=== PATIENT | male | born 1955 | race Hispanic/Latino ===

== ENCOUNTER 2016-05-17 17:22 | Emergency (ER) | payer OTHER, MEDICARE ==
[~2016-05-17] VITALS: Ht 165.1 cm; Wt 76.2 kg
[~2016-05-17 17:22] MED LIST: ALPRAZOLAM0.5 MG PO; ECOTRIN81 MG PO; GLUCOPHAGE1000 M1 PO; JANUVIA 50MG50 MG PO; LIPITOR40 M1 PO; MOBIC 15MG15 MG PO; NAPROXEN500 MG PO; OMEPRAZOLE40 MG PO; PAXIL30 MG PO; PREDNISONE10 M2 PO; TRAMADOL50 MG PO; TRAZODONE100 MG PO; WELLBUTRIN75 MG PO; ZYPREXA20 MG PO
[2016-05-17 17:48] LABS: ABSOLUTE BASOPHIL COUNT 0 /CUMM (0.0-0.2); ABSOLUTE EOSINOPHIL COUNT 0 /CUMM (0.0-0.7); ABSOLUTE MONOCYTE COUNT 0.4 /CUMM (0.10-0.60); BASOPHIL % 0.2 % (0.0-2.0); EOSINOPHIL % 0.1 % (0-5); HEMATOCRIT 38.6 % (42-52); MEAN CORPUSCULAR HGB 26.6 PG (27.0-31.0); MEAN CORPUSCULAR HGB CONC 33.4 G/DL (33.0-37.0); MEAN CORPUSCULAR VOLUME 79.7 FL (80.0-94.0); MEAN PLATELET VOLUME 6.9 FL (7.4-10.4); PLATELET COUNT 326 /CUMM (130-400); RBC DISTRIBUTION WIDTH 13.8 % (11.5-14.5); RED BLOOD CELL CT 4.84 /CUMM (4.70-6.10); WHITE BLOOD CELL COUNT 10.3 /CUMM (4.8-10.8)
[2016-05-17 18:04] LABS: GRANULOCYTE % 86.6 % (42.2-75.2)
--- NOTE | 2016-05-17 18:08 | ED DYSPNEA/ASTHMA COMPLAINT ---
History of Present Illness General Chief Complaint: Dyspnea (COPD, CHF, Other) Stated Complaint: PT IS SHORTNESS OF BREATH Source: patient Exam Limitations: no limitations Vital Signs & Intake/Output Vital Signs & Intake/Output Vital Signs Date Time Temp Pulse Resp B/P Pulse O2 O2 Flow FiO2 Ox Delivery Rate 05/18 0010 98.3 73 18 128/78 98 Nasal Cannula 05/17 2247 99 05/17 2240 97.7 70 18 130/68 96 Room Air 05/17 1937 97.3 72 18 111/64 99 Room Air 05/17 1753 96 05/17 1727 96.6 89 20 94/66 97 Room Air ED Intake and Output 05/18 0000 05/17 1200 Intake Total 1000 Output Total Balance 1000 Intake, IV 1000 Patient 168 lb Weight Allergies Coded Allergies: phenelzine (BRADYCARDIA 05/17/16) Triage Note: TRIAGE: PT TO ER C/C SOB X 2 WKS. DENIES ANY RESPIRATORY OR CHEST CONGESTION, DENIES COUGHING. STATES SOB IS MOSTLY WITH EXERTION BUT IS FEELING SOB AT TRIAGE. ALSO SLIGHT NON PRODUCTIVE COUGH NOTED AT TRIAGE. DENIES ANY PAIN. Triage Nurses Notes Reviewed? yes Onset: Gradual Duration: constant Timing: recent history Severity: moderate HPI: Patient is a 60-year-old male with past medical history type 2 diabetes, pacemaker placement, bipolar disorder and arthritis who is never day smoker presents emergency room with a two-week history of shortness of breath and dyspnea on exertion Positive for generalized weakness and night sweats. Denies any chest pain arm pain jaw pain nausea vomiting leg swelling, hemoptysis fever cough or loss of weight (JANIA ALBERTS,SHREE) Reconcile Medications Albuterol Sulfate (Proair Hfa) 90 MCG HFA.AER.AD 2-4 PUF INH Q4-6 PRN PRN shortness of breath Aspirin (Ecotrin) 81 MG ECT 1 TAB PO DAILY HEART HEALTH (Reported) Atorvastatin Calcium (Lipitor) 40 MG TAB 1 TAB PO DAILY CHOLESTEROL (Reported ) Duloxetine HCl (Cymbalta) 60 MG CAPSULE.DR 60 MG PO DAILY DEPRESSION ( Reported) Duloxetine Hydrochloride (Cymbalta) 30 MG CAPSULE.DR 30 MG PO DAILY DEPRESSION (Reported) Lisinopril 5 MG TABLET 5 MG PO DAILY HIGH BLOOD PRESSURE (Reported) METFORMIN HCL (Metformin) 1,000 MG TAB 1 TAB PO BID DM (Reported) Naproxen 500 MG TAB 1 TAB PO D PAIN (Reported) Olanzapine (Zyprexa) 20 MG TAB 1 TAB PO QHS MENTAL HEALTH (Reported) Omeprazole 40 MG ECC 1 CAP PO DAILY ACID (Reported) Paroxetine Hydrochloride (Paxil) 30 MG TAB 2 TAB PO D MENTAL HEALTH (Reported ) TRAMADOL HCL (Tramadol) 50 MG TAB 1 TAB PO BID PAIN (Reported) TRAZODONE HCL (Trazodone HCl) 100 MG TABLET 1 TAB PO QPM SLEEP (Reported) (JENNY ISABEL,ADAM) Past History Travel History Traveled to [place] past 21 day No Medical History Any Pertinent Medical History? 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 No (SHREE BIRD) Review of Systems Review of Systems Constitutional: Reports: see HPI. Denies: fever. EENTM: Reports: no symptoms. Respiratory: Reports: see HPI, short of breath. Denies: cough. Cardiovascular: Reports: see HPI. Denies: chest pain, edema, peripheral edema. GI: Reports: no symptoms. Genitourinary: Reports: no symptoms. Musculoskeletal: Reports: no symptoms. Skin: Reports: no symptoms. Neurological/Psychological: Reports: no symptoms. Hematologic/Endocrine: Reports: no symptoms. Immunologic/Allergic: Reports: no symptoms. All Other Systems: Reviewed and Negative (SHREE BIRD) Physical Exam Physical Exam General Appearance: no apparent distress Head: atraumatic Eyes: Bilateral: normal appearance. Ears, Nose, Throat: normal pharynx, normal ENT inspection Neck: normal inspection, supple Respiratory: chest non-tender, no respiratory distress, quiet respiration, decreased breath sounds Cardiovascular: regular rate/rhythm Gastrointestinal: normal bowel sounds, soft, non-tender, no organomegaly Extremities: normal inspection, normal capillary refill, normal range of motion Neurologic/Psych: no motor/sensory deficits Skin: intact, normal color, warm/dry Core Measures ACS in differential dx? Yes Severe Sepsis Present: No Septic Shock Present: No (SHREE BIRD) Progress Differential Diagnosis: asthma, AMI, bronchitis, costochondritis, CHF, COPD, musculoskeletal pain, pericarditis, pulmonary embolism, pneumonia, pneumothorax, rib fracture, unstable angina Plan of Care: Orders Procedure Date/time Status Add-on Test (ER Only) 05/17 180 Active D-DIMER 05/17 173 Complete TROPONIN LEVEL 05/17 173 Complete COMPREHENSIVE METABOLIC PANEL 05/17 173 Complete CBC WITHOUT DIFFERENTIAL 05/17 1730 Complete EKG 05/17 172 Active Laboratory Tests 05/17/16 1738: Anion Gap 18 H, Estimated GFR 31 L, BUN/Creatinine Ratio 9.5, Glucose 103 H, Calcium 9.7, Total Bilirubin 0.4, AST 20, ALT 34, Alkaline Phosphatase 102, Troponin I < 0.01, Total Protein 7.2, Albumin 4.5, Globulin 2.7, Albumin/ Globulin Ratio 1.7, D-Dimer 405 H, CBC w Diff NO MAN DIFF REQ, RBC 4.84, MCV 79.7 L, MCH 26.6 L, RDW 13.8, MPV 6.9 L, Gran % 86.6 H, Lymphocytes % 9.6 L , Monocytes % 3.5, Eosinophils % 0.1, Basophils % 0.2, Absolute Granulocytes 9.0 H, Absolute Lymphocytes 1.0 L, Absolute Monocytes 0.4, Absolute Eosinophils 0, Absolute Basophils 0, PUBS MCHC 33.4 Patient currently is in no apparent distress patient ambulated down the hallway noted to be 96% room air with no dyspnea, Discussed and offered who is aware of patient's history of present illness and exam findings which patient at this time only has blood work noted for acute kidney injury. EKG was unremarkable chest x-ray is pending blood work especially troponin and dimer are still pending (SHREE BIRD) 6:35 PM PATIENT SIGNED OUT TO ME BY LEXUS DYKES. PENDING LABS, XRAY. U/S ORDERED TO R/O DVT. (JENNY ISABEL,ADAM) Initial ED EK BPM ATRIAL PACED PACED RHYTHM Hand-Off Endorsed To: ADAM ALVARADO MD Endorsed Time: 1831 Pending: labs, Xray (SHREE BIRD) Diagnostic Imaging: Viewed by Me: Radiology Read, Ultrasound. Discussed w/RAD: Radiology Read, Ultrasound. Hand-Off Endorsed To: CANDICE CARLISLE MD Endorsed Time: 1915 Pending: ultrasound, Xray (ADAM ALVARADO MD) Comments: Improved after interventions. Ambulates without desaturation. (CANDICE CARLISLE MD) Departure Departure Condition: Stable Referrals: RACHEL POLO MD (PCP/Family) (SHREE BIRD) Departure Time of Disposition: 41 Disposition: HOME OR SELF CARE Clinical Impression Primary Impression: DARLING (acute kidney injury) Secondary Impressions: Dyspnea on effort Additional Instructions: Stop Naprosyn and Lisinopril. Call your doctor if a substitute for Lisinopril is needed. 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 I have also reviewed all the pertinent lab results and diagnostic results. I agree with the findings and the plan of care as documented in the PA's/PACKAGING SALES REPRESENTATIVE's documentation. [] I have reviewed the ED Record and agree with the PA's/PACKAGING SALES REPRESENTATIVE's documentation. [] Additions or exceptions (if any) to the PAs/PACKAGING SALES REPRESENTATIVE's note and plan are summarized below: [] (CANDICE CARLISLE MD) Critical Care Note Critical Care Note Critical Care Time: non-applicable (SHREE BIRD)
--- NOTE | 2016-05-17 19:33 | RADIOLOGY REPORT ---
EXAMINATION: XR CHEST CLINICAL INFORMATION: Shortness of breath. COMPARISON: Portable chest x-ray 03/28/2015. TECHNIQUE: PA and lateral views of the chest were obtained. FINDINGS: The lungs are hypoinflated but otherwise clear without focal airspace consolidation. No pleural effusions or pneumothoraces are identified. Cardiomediastinal contours are within normal limits. There is a right chest wall cardiac pacemaker with leads identified in the expected region of the right atrium and right ventricle. Soft tissues are unremarkable. No acute osseous abnormality is identified. IMPRESSION: No acute pulmonary process.
--- NOTE | 2016-05-17 21:32 | ULTRASOUND REPORT ---
EXAMINATION: US TRIPLEX LOWER EXTREMITY, BILATERAL CLINICAL INFORMATION: Shortness of breath with exertion. Rule out DVT COMPARISON: None. TECHNIQUE: Color-flow triplex imaging with spectral analysis and compression Doppler were performed on the bilateral lower extremities. FINDINGS: Respiratory variation, normal compression and augmented flow are noted throughout the bilateral lower extremities. The visualized common femoral vein, superficial femoral vein, profunda femoral vein, popliteal vein and midcalf peroneal and posterior tibial venous segments show no evidence of deep venous thrombosis. There is no Juárez's cyst. There is a prominent left femoral lymph node although this is not pathologically enlarged by short axis size criteria. IMPRESSION: No evidence of deep venous thrombosis involving the bilateral lower extremities. Prominent left femoral lymph node. This is of uncertain significance as it is not pathologically enlarged by short axis size criteria.
[2016-05-17] MEDS ORDERED: CYMBALTA30 M1 PO (22:47)
[2016-05-17] MEDS ORDERED: CYMBALTA60 M1 PO (22:48)
[2016-05-17] MEDS ORDERED: LISINOPRIL5 M1 PO (22:49)
[2016-05-18 00:10] VITALS: BP 128/78
[2016-05-18] MEDS ORDERED: PROAIR HFA8.5 GM INH (00:46)
== END 2016-05-18 00:38 ==
LOC: ERH 17:22
PROVIDERS: Emergency Medicine
DX: N17.9 Acute kidney failure, unspecified (principal); R06.00 Dyspnea, unspecified; I10 Essential (primary) hypertension; R06.02 Shortness of breath; Z95.0 Presence of cardiac pacemaker
CPT/HCPCS: 1263; 93005; 93010; 93970; 96360; 96361

== ENCOUNTER 2016-08-09 18:42 | Emergency (ER) | payer OTHER, MEDICARE ==
[~2016-08-09] VITALS: Ht 165.1 cm; Wt 73.9 kg
[~2016-08-09 18:42] MED LIST changes: +CYMBALTA30 M1 PO; +CYMBALTA60 M1 PO; +LISINOPRIL5 M1 PO; +PROAIR HFA8.5 GM INH
[2016-08-09] MEDS ORDERED: TRAZODONE HCL100 M1 PO (19:39)
[2016-08-09] MEDS ORDERED: OMEPRAZOLE20 M2 PO (19:40)
[2016-08-09] MEDS ORDERED: OLANZAPINE20 M1 PO (19:40)
--- NOTE | 2016-08-09 19:40 | ED GI/GU/ABDOMINAL COMPLAINT ---
History of Present Illness General Chief Complaint: General Adult Stated Complaint: RECTAL BLEEDING Source: patient, old records Exam Limitations: no limitations Vital Signs & Intake/Output Vital Signs & Intake/Output Vital Signs Date Time Temp Pulse Resp B/P B/P Pulse O2 O2 Flow FiO2 Mean Ox Delivery Rate 08/09 2244 97.6 78 17 128/72 97 Room Air 08/09 2043 97.8 76 17 118/68 99 Room Air 08/09 1854 97.6 83 16 112/74 98 Room Air ED Intake and Output 08/10 0000 08/09 1200 Intake Total 1000 Output Total Balance 1000 Intake, IV 1000 Patient 163 lb Weight Weight Reported by Patient Measurement Method Allergies Coded Allergies: phenelzine (BRADYCARDIA 05/17/16) Reconcile Medications Anusol Hc (Anusol-Hc) 25 MG SUPP.RECT 1 SUP RC BID internal hemorrhoids Atorvastatin Calcium (Lipitor) 40 MG TABLET 1 TAB PO DAILY CHOLESTEROL ( Reported) Cholecalciferol (Vitamin D3) (Vitamin D) 1,000 UNIT TABLET 1 TAB PO DAILY SUPPLEMENT (Reported) Duloxetine HCl (Cymbalta) 60 MG CAPSULE.DR 60 MG PO DAILY DEPRESSION ( Reported) Duloxetine Hydrochloride (Cymbalta) 30 MG CAPSULE.DR 30 MG PO DAILY DEPRESSION (Reported) Lisinopril 5 MG TABLET 5 MG PO DAILY HIGH BLOOD PRESSURE (Reported) Metformin HCl (Glucophage) 1,000 MG TABLET 1 TAB PO BID DM (Reported) Olanzapine 20 MG TABLET 1 TAB PO QPM MENTAL HEALTH (Reported) Omeprazole 20 MG CAPSULE.DR 1 CAP PO DAILY GI (Reported) Trazodone HCl 100 MG TABLET 1 TAB PO QPM SLEEP (Reported) Triage Note: PT STATES HE HAS HAD RECTAL BLEEDING FOR THE PAST 4 DAYS. PT STATES THE BLOOD IS BRIGHT RED. PT STATES THIS HAS HAPPEND TO HIM IN THE PAST AND THEY TOLD HIM HE CAN'T TAKE ASA BECAUSE HE HAS INTERNAL HERMMERHOIDS. Triage Nurses Notes Reviewed? yes Onset: Last week Duration: day(s):, intermittent Timing: recent history Quality/Severity: cramping, mild Severity Numbers: 3 Location: right lower quadrant Radiation: no radiation Activities at Onset: none Prior Abdominal Problems: similar symptoms Past Sexual History: Unobtainable at this time No Modifying Factors: none Associated Symptoms: abdominal pain HPI: 1 week prior to admission patient complains of passing blood with stools up to 2 times per day. 1 day prior to admission he complains of right lower quadrant pain mild taking nonradiating constant. He denies fever chills nausea vomiting anorexia diarrhea chest pain cough shortness of breath headache dysuria rash bleeding. Past History Travel History Traveled to [place] past 21 day No Medical History Any Pertinent Medical History? 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 No Review of Systems Review of Systems Constitutional: Reports: no symptoms. EENTM: Reports: no symptoms. Respiratory: Reports: no symptoms. Cardiovascular: Reports: no symptoms. GI: Reports: see HPI, abdominal pain, bloody stool. Genitourinary: Reports: no symptoms. Musculoskeletal: Reports: no symptoms. Skin: Reports: no symptoms. Neurological/Psychological: Reports: no symptoms. Hematologic/Endocrine: Reports: no symptoms. Immunologic/Allergic: Reports: no symptoms. All Other Systems: Reviewed and Negative Physical Exam Physical Exam General Appearance: well developed/nourished, alert, awake, anxious, mild distress Head: atraumatic, normal appearance Eyes: Bilateral: normal appearance, PERRL, EOMI. Ears, Nose, Throat, Mouth: hearing grossly normal, moist mucous membrane Neck: normal inspection, supple, full range of motion, normal alignment Respiratory: normal breath sounds, chest non-tender, no respiratory distress, quiet respiration, lungs clear Cardiovascular: regular rate/rhythm, normal peripheral pulses, norml femoral pulses equa Peripheral Pulses: 4+ carotid (R), 4+ carotid (L) Gastrointestinal: normal bowel sounds, soft, non-tender, no organomegaly Rectal: normal inspection, normal rectal tone, hemmorrhoids, tenderness, no stool no blood Male Genitals: normal genitalia Back: normal inspection, normal range of motion, no vertebral tenderness Extremities: normal range of motion, no ligament instability Neurologic/Psych: no motor/sensory deficits, awake, alert, oriented x 3, normal gait, normal mood/affect, 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 No Severe Sepsis Present: No Septic Shock Present: No Progress Differential Diagnosis: gastritis, hemorrhoids, inflamm bowel dis, PUD/GERD Plan of Care: Orders Procedure Date/time Status MISTAKE 08/09 1937 Active PROTHROMBIN TIME 08/09 1937 Complete LIPASE 08/09 1937 Complete COMPREHENSIVE METABOLIC PANEL 08/09 1937 Complete CBC WITHOUT DIFFERENTIAL 08/09 1937 Complete Laboratory Tests 08/09/161953: Anion Gap 15, Estimated GFR > 60, BUN/Creatinine Ratio 21.1, Glucose 132 H, Calcium 9.3, Total Bilirubin 0.3, AST 24, ALT 43, Alkaline Phosphatase 96, Total Protein 6.7, Albumin 4.0, Globulin 2.7, Albumin/Globulin Ratio 1.5, Lipase 175, PT 11.3, INR 1.08, CBC w Diff NO MAN DIFF REQ, RBC 4.47 L, MCV 78.9 L, MCH 26.7 L, RDW 14.0, MPV 7.6, Gran % 71.8, Lymphocytes % 21.6, Monocytes % 4.0, Eosinophils % 1.8, Basophils % 0.8, Absolute Granulocytes 7.7 H, Absolute Lymphocytes 2.3, Absolute Monocytes 0.4, Absolute Eosinophils 0.2, Absolute Basophils 0.1, PUBS MCHC 33.8 Initial ED EKG: none Departure Departure Time of Disposition: 2244 Disposition: HOME OR SELF CARE Condition: Stable Clinical Impression Primary Impression: Internal bleeding hemorrhoids Referrals: MELANI ISABEL,RACHEL (PCP/Family) KEIKO WALTERS MD Call for GI follow up Departure Forms: Customer Survey General Discharge Information Prescriptions: Current Visit Scripts Anusol Hc (Anusol-Hc) 1 SUP RC BID #[id number] SUP
[2016-08-09] MEDS ORDERED: VITAMIN D1000 UNIT PO (19:42)
[2016-08-09 20:07] LABS: ABSOLUTE BASOPHIL COUNT 0.1 /CUMM (0.0-0.2); ABSOLUTE EOSINOPHIL COUNT 0.2 /CUMM (0.0-0.7); ABSOLUTE GRANULOCYTE CT 7.7 /CUMM (1.4-6.5); ABSOLUTE LYMPH COUNT 2.3 /CUMM (1.2-3.4); ABSOLUTE MONOCYTE COUNT 0.4 /CUMM (0.10-0.60); BASOPHIL % 0.8 % (0.0-2.0); EOSINOPHIL % 1.8 % (0-5); GRANULOCYTE % 71.8 % (42.2-75.2); HEMATOCRIT 35.3 % (42-52); MEAN CORPUSCULAR HGB 26.7 PG (27.0-31.0); MEAN CORPUSCULAR HGB CONC 33.8 G/DL (33.0-37.0); MEAN CORPUSCULAR VOLUME 78.9 FL (80.0-94.0); MEAN PLATELET VOLUME 7.6 FL (7.4-10.4); RED BLOOD CELL CT 4.47 /CUMM (4.70-6.10); WHITE BLOOD CELL COUNT 10.7 /CUMM (4.8-10.8)
[2016-08-09 20:14] LABS: PLATELET COUNT 270 /CUMM (130-400)
--- NOTE | 2016-08-09 21:26 | CT SCAN REPORT ---
EXAMINATION: CT ABDOMEN AND PELVIS WITH CONTRAST CLINICAL INFORMATION: Abdomen pain. Bright red blood per rectum. COMPARISON: Portions of a previous study 01/10/16 TECHNIQUE: Multidetector volumetric imaging was performed of the abdomen and pelvis before and after the IV administration of 95 mL of Optiray 320 intravenous contrast. Sagittal and coronal reformatted images were obtained on the technologist's workstation. DLP: 289 mGy-cm FINDINGS: LUNG BASES: No change in 0.5 cm noncalcified right lower lobe pulmonary nodule. Artifact related to cardiac leads. LIVER, GALLBLADDER, AND BILIARY TREE: Small low attenuating lesion in the dome of hepatic segment 8 is unchanged. No suspicious focal liver lesion. There may be some focal fatty change around the belinda hepatis. The gallbladder is collapsed. No opaque gallstone. No biliary dilation PANCREAS: Unremarkable. SPLEEN: No suspicious abnormality ADRENAL GLANDS: Within normal limits KIDNEYS AND URETERS: Bilateral nephrograms. No dilation of the urinary collecting system on either side. No opaque urinary calculus. BLADDER: No focal abnormality. The bladder is not well-distended. GASTROINTESTINAL TRACT: The distal rectum is not well distended. There is no definite localized fat stranding around the colon. There is no definite extravasation of contrast into the colonic lumen. No abnormal appendix. No significant small bowel dilation. The stomach is moderately distended. ABDOMINAL WALL: No suspicious abnormality LYMPH NODES: No enlarged abdominal or pelvic lymph nodes. There are a few nonspecific mesenteric lymph nodes. There is no free intraperitoneal fluid. VASCULAR: There is no abdominal aortic aneurysm. The portal vein enhances. PELVIC VISCERA: No suspicious abnormality in the prostate or region of seminal vesicles OSSEOUS STRUCTURES: No focal bony lesion IMPRESSION: No specific CT evidence of diverticulitis. No etiology for bright red blood per rectum. Nonspecific top normal mesenteric lymph nodes
[2016-08-09 22:11] LABS: PT 11.3 SEC (9.4-12.5)
[2016-08-09 22:44] VITALS: BP 128/72
[2016-08-09] MEDS ORDERED: ANUSOL-HC25 M1 RC (22:48)
== END 2016-08-09 23:04 ==
LOC: ERH 18:42
PROVIDERS: Emergency Medicine
DX: K64.8 Other hemorrhoids (principal)
CPT/HCPCS: 74177

== ENCOUNTER 2017-10-27 22:41 | Emergency (ER) | payer OTHER ==
[~2017-10-27 22:41] MED LIST changes: +ALPRAZOLAM1 M2 PO; +ANUSOL-HC25 M1 RC; +ASPIRIN81 M4 PO; +ATORVASTATIN CA40 M1 PO; +DEPAKOTE500 M1 PO; +DIVALPROEX SOD500 M2 PO; +GLIPIZIDE10 M2 PO; +LATUDA80 M1 PO; +MOBIC15 M1 PO; +NITROSTAT0.3 M1 SL; +OLANZAPINE15 M1 PO; +OLANZAPINE20 M1 PO; +OMEPRAZOLE20 M2 PO; +TRAZODONE HCL100 M1 PO; +TRAZODONE HCL50 M1 PO; +VITAMIN D1000 UNIT PO; +ZITHROMAX250 M2 PO
[2017-10-27 22:46] VITALS: BP 160/79
--- NOTE | 2017-10-27 22:51 | ED GENERAL ADULT ---
History of Present Illness General Chief Complaint: General Adult Stated Complaint: "MY LEGS ARE NUMB AND MY HANDS ARE NUMB" Source: patient Exam Limitations: no limitations Vital Signs & Intake/Output Vital Signs & Intake/Output Vital Signs Date Time Temp Pulse Resp B/P B/P Pulse O2 O2 Flow FiO2 Mean Ox Delivery Rate 10/27 2258 Room Air 10/27 2246 97.6 67 18 160/79 97 Room Air ED Intake and Output 10/28 0000 10/27 1200 Intake Total 0 Output Total Balance 0 Intake, Oral 0 Allergies Coded Allergies: aspirin (UNKNOWN 10/27/17) phenelzine (BRADYCARDIA 04/11/17) Reconcile Medications Atorvastatin Calcium 40 MG TABLET 1 TAB PO 1700 hyperlipidemia Azithromycin (Zithromax) 250 MG TABLET 1 DP PO AD sinusitis 2 the first day followed by 1 for days 2-5 Cholecalciferol (Vitamin D3) (Vitamin D) 1,000 UNIT TABLET 1 TAB PO DAILY SUPPLEMENT (Reported) Divalproex Sodium (Depakote) 500 MG TABLET.DR 1 TAB PO BID MOOD STABALIZER ( Reported) Glipizide 10 MG TABLET 1 TAB PO BID DIABETES (Reported) Lurasidone HCl (Latuda) 80 MG TABLET 1 TAB PO QPM DIABETES (Reported) Meloxicam (Mobic) 15 MG TABLET 1 TAB PO DAILY pain Metformin HCl (Glucophage) 1,000 MG TABLET 1 TAB PO BID DM (Reported) Olanzapine 15 MG TABLET 1 TAB PO BID psychosis oe tab po bid Omeprazole 20 MG CAPSULE.DR 2 TAB PO DAILY AC gerd Tramadol HCl 50 MG TABLET 1 TAB PO TID PRN pain ten...[id number] Trazodone HCl 50 MG TABLET 1 TAB PO QPM SLEEP HELP (Reported) Triage Note: PT TO TRIAGE C/O LEGS AND HANDS FEELING NUMB X1 YEAR. PT STATES "THIS IS FOR MY OWN SAFETY." DENIES NEW SYMPTOMS. MD HITCHCOCK IN TRIAGE TO [facility] [place]. PT NOW STATING TO MD HITCHCOCK THAT HE HAS A CERVICAL PROBLEM AND NECK PAIN. Triage Nurses Notes Reviewed? yes Onset: Gradual Duration: months, waxing and waning Timing: recent history Injury Environment: home Severity: moderate Modifying Factors: Improves With: rest. Associated Symptoms: muscle spasm HPI: 62 yo gentleman presents with neck pain, numbness and tingling on hands and feet x 1.5 years, not progressing. He notes that the pain has gotten better with tramadol. He asks for tramadol. He notes no weakness, chills, fever. He is otherwise well. Past History Travel History Traveled to [place] past 21 day No Medical History Any Pertinent Medical History? 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 No Review of Systems Review of Systems Constitutional: Reports: no symptoms. EENTM: Reports: no symptoms. Respiratory: Reports: no symptoms. Cardiovascular: Reports: no symptoms. GI: Reports: no symptoms. Genitourinary: Reports: no symptoms. Musculoskeletal: Reports: no symptoms. Skin: Reports: no symptoms. Neurological/Psychological: Reports: no symptoms. Hematologic/Endocrine: Reports: no symptoms. Immunologic/Allergic: Reports: no symptoms. All Other Systems: Reviewed and Negative Physical Exam Physical Exam General Appearance: see below Comments: Review of Systems - except as otherwise noted in HPI Review of Systems Constitutional:no symptoms. EENTM:no symptoms. Respiratory:no symptoms. Cardiovascular:no symptoms. GI:no symptoms. Genitourinary:no symptoms. Musculoskeletal:no symptoms. Skin:no symptoms. Neurological/Psychological:no symptoms. Hematologic/Endocrine:no symptoms. Immunologic/Allergic:no symptoms. All Other Systems: Reviewed and Negative Physical Exam Physical Exam General Appearance: well developed/nourished, no apparent distress Head: atraumatic, normal appearance Eyes: Bilateral: normal appearance. Ears, Nose, Throat: normal pharynx, normal ENT inspection Neck: normal inspection, supple, full range of motion, right sided paracervical muscle spasm, mild tenderness to palpation. Respiratory: normal breath sounds, chest non-tender, no respiratory distress, quiet respiration, lungs clear Cardiovascular: regular rate/rhythm Gastrointestinal: normal bowel sounds, soft, non-tender, no organomegaly Back: normal inspection, normal range of motion Extremities: normal inspection, normal capillary refill, normal range of motion, no edema Neurologic/Psych: no motor/sensory deficits, awake, alert, oriented x 3, strength, light touch intact in upper and lower extremities. Skin: intact, normal color, warm/dry Core Measures ACS in differential dx? No CVA/TIA Diagnosis: No Sepsis Present: No Sepsis Focused Exam Completed? No Progress Differential Diagnoses I considered the following diagnoses in my evaluation of the patient: Plan of Care: discussed at length... sent rx for tramadol to pharmacy... close follow up advised. Initial ED EKG: none Departure Departure Disposition: HOME OR SELF CARE Condition: Stable Clinical Impression Primary Impression: Cervicalgia Secondary Impressions: Numbness and tingling, Numbness and tingling in both hands Referrals: Bessy Doherty MD (PCP/Family) Departure Forms: Customer Survey General Discharge Information Prescriptions: Current Visit Scripts Tramadol HCl 1 TAB PO TID PRN pain #10 TAB ten...[id number] Critical Care Note Critical Care Note Critical Care Time: non-applicable
[2017-10-27] MEDS ORDERED: TRAMADOL HCL50 M1 PO (22:53)
== END 2017-10-27 22:58 ==
LOC: ERH 22:41
DX: M54.2 Cervicalgia (principal); R20.0 Anesthesia of skin